=== PATIENT | male | born 1945 | race Caucasian/White ===

== ENCOUNTER → 2023-12-06 10:05 | Outpatient (REF) | payer MEDICARE, OTHER, SELFPAY | LOC: RAD 10:05 | PROVIDERS: ATTENDING PHYSICIAN Internal Medicine Hematology & Oncology; FAMILY PHYSICIAN Internal Medicine; REFERRING PHYSICIAN Internal Medicine Cardiovascular Disease | DX: D68.51 Activated protein C resistance (principal); Z86.711 Personal history of pulmonary embolism; Z86.718 Personal history of other venous thrombosis and embolism; R22.41 Localized swelling, mass and lump, right lower limb | CPT/HCPCS: 93971 ==

== ENCOUNTER 2023-12-18 06:24 | Day surgery (SDC) | payer MEDICARE, OTHER, SELFPAY ==
[2023-11-30 12:27] VITALS: BMI 27.4
[2023-11-30 14:31] LABS: Hematocrit 38.9 % (39.0-52.0); Hemoglobin 13.5 g/dL (13.0-18.0); Mean Corp Hgb Conc. 34.7 g/dL (33.0-37.0); Mean Corpuscular Hgb 31.3 pg (27.0-31.0); Mean Platelet Volume 11.4 fL (7.4-10.4); Platelet Count 188 10^3/uL (130-400); Red Blood Cell Count 4.32 10^6/uL (4.70-6.10); Red Cell Dist. Width 12.6 % (11.5-14.5); White Blood Cell Count 6.9 10^3/uL (4.8-10.8)
[2023-11-30 14:51] LABS: ALT (SGPT) 16 U/L (0-50); AST (SGOT) 23 U/L (17-59); Albumin 3.9 g/dl (3.5-5.0); Alkaline Phosphatase 74 U/L (38-126); Blood Urea Nitrogen 25 mg/dl (9-20); Calcium 9.3 mg/dl (8.4-10.2); Carbon Dioxide 24 mmol/L (22-30); Chloride 103 mmol/L (98-107); Estimated Creatinine Clearance 57 ml/min; Glucose 84 mg/dl (70-99); Potassium 4.7 mmol/L (3.5-5.1); Sodium 138 mmol/L (135-145); Total Bilirubin 0.5 mg/dl (0.2-1.3); Total Protein 6.3 g/dl (6.3-8.2); eGFR > 60.00
[2023-12-01 09:06] LABS: Glycohemoglobin (HgbA1c) 5.8 % (4.0-5.6)
--- NOTE | 2023-12-05 14:24 | VNURNOTE ---
Patient is scheduled for an elective R TKA on 12/18/23- he is a same day patient. Spoke with patient prior to surgery. Introduced role of VN liaison.
Patient reports that he lives with his in a MULTI story home.
There are 11 steps to enter.
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 He has a cane and rolling walker.
PCP is Dr Hayden at [facility].
Discussed orthopedic program and post surgical plans.
Reviewed that he will have VN services initially and will then start outpatient PT tentatively at [facility] in [place]. Advised patient to call outpt PT [facility] to schedule end of week of 12/17.
Patient selects VN for his home care needs and will go to [facility] outpt PT [place] date TBD.
Patient is in agreement with plan and states that his will be home with him. he is planning on son and to pick him up after surgery.
Plan: VN SDS joint protocol then outpt PT>
[2023-12-12 10:08] VITALS: BMI 27.4
[2023-12-18] VITALS (14 sets, daily range): BP systolic 126–157; BP diastolic 71–85; PULSE 59; O2SAT 95; BMI 27.4
[2023-12-18] MEDS: CELEBREX 200 MG PO (07:55)
[2023-12-18] MEDS: NORMOSOL-R/PLASMALYTE-A 1000 IV (07:55)
[2023-12-18] MEDS: TYLENOL 650 MG PO (07:55)
[2023-12-18] MEDS: ZOFRAN 4 MG IV (12:17)
[2023-12-18] MEDS: ANCEF 5 IV (14:08)
== END 2023-12-18 15:26 | disposition home or self-care (01) ==
LOC: SDS 06:24
PROVIDERS: ATTENDING PHYSICIAN Specialist; OTHER PHYSICIAN Internal Medicine Cardiovascular Disease; OTHER PHYSICIAN Internal Medicine Hematology & Oncology; REFERRING PHYSICIAN Internal Medicine
DX: M17.11 Unilateral primary osteoarthritis, right knee (principal); D68.51 Activated protein C resistance; I48.91 Unspecified atrial fibrillation; Z79.01 Long term (current) use of anticoagulants; Z86.718 Personal history of other venous thrombosis and embolism
CPT/HCPCS: 27447; 36415; 73560; 80053; 83036; 85027; 87070; 97116; 97162; C1713; C1776